=== PATIENT | female | born 1990 | race African-American/Black ===

== ENCOUNTER → 2016-09-20 | Day surgery (SDC) | payer OTHER ==
[~2016-09-20] VITALS: Ht 165.1 cm; Wt 77.6 kg
[2016-09-20] VITALS (8 sets, daily range): BP systolic 116–125; BP diastolic 67–89; PULSE 63–87; TEMP 97.8–98.7
[~2016-09-20] MED LIST: MACRODANTIN100 PO; PRENATAL1 TA7 PO; VITAMIN D 1001000 IU PO; VITAMIN D 400400 IU PO
== END ==
LOC: SDCO 12:59
DX: R10.12 Left upper quadrant pain (principal); I10 Essential (primary) hypertension; Z87.442 Personal history of urinary calculi; I34.0 Nonrheumatic mitral (valve) insufficiency; G43.909 Migraine, unspecified, not intractable, without status migrainosus
CPT/HCPCS: C1769; C2617; J0690; J1100; J1885; J2405; J2550; J2704; J3010; J7120; Q9967